=== PATIENT | male | born 1945 | race African-American/Black ===

== ENCOUNTER 2017-10-11 12:28 | Emergency (ER) | payer MEDICARE, OTHER ==
[~2017-10-11] VITALS: Ht 190.5 cm; Wt 106.6 kg
[~2017-10-11 12:28] MED LIST: ASPIR 8181 MG ORAL; ATENOLOL25 MG ORAL; DOXYCYCLINE MO100 MG ORAL; GLIPIZIDE5 MG ORAL; METFORMIN HCL1000 M1 ORAL; VENTOLIN HFA18 GM INH
[2017-10-11 12:35] VITALS: BP 148/78
[2017-10-11 13:12] LABS: APPEARANCE,URINE CLEAR; KETONES,URINE 1+ (NEGATIVE); LEUKOCYTE ESTERASE ,URINE 3+ (NEGATIVE); NITRITE,URINE NEGATIVE (NEGATIVE); PH,URINE 5 (4.5-8.0); PROTEIN,URINE 1+ (NEGATIVE); UROBILINOGEN,URINE 1 MG/DL (0.0-1.0)
[2017-10-11 13:21] LABS: BACTERIA,URINE FEW /HPF; MUCUS,URINE FEW /LPF (NONE/OCC); RBC,URINE 0-2 /HPF (0 - 0); SQUAMOUS EPITHELIAL CELL,UR OCCASIONAL /LPF (NONE/OCC)
[2017-10-11] MEDS ORDERED: CIPROFLOXACIN500 M2 ORAL (13:28)
[2017-10-11] MEDS ORDERED: ACETAMINOPHEN-1 EAC1 ORAL (13:28)
[2017-10-11 13:34] VITALS: BP 160/89
[2017-10-11 13:35] VITALS: BP 160/89
--- NOTE | 2017-10-11 23:03 | Emergency Room Report ---
History of Present Illness General Chief Complaint: Abdominal Pain Source: Patient (KRISHAN GTZ) Present Illness HPI The patient is a 72-year-old male presenting for the lower abdominal pain and increased urinary frequency for the past week. He states they had a urinary tract infection one year prior and this feels the same. Pain is an 8/10 dull ache and does not radiate. He denies any known provoking or relieving factors. He denies other symptoms including dysuria, hematuria, back pain, nausea, vomiting, fever, chills (KRISHAN GTZ) Allergies: Coded Allergies: No Known Allergies (Unverified , 05/29/16) Patient History Past Medical History: see triage record Pertinent Family History: none Reviewed Nursing Documentation: PMH: Agreed, PSxH: Agreed (KRISHAN GTZ) Nursing Documentation-PMH Hx Cardiac Problems: Yes - [place] 1998. 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 Hx Gastrointestinal Problems: No Hx Neurological Problems: No (KRISHAN GTZ) Review of Systems All Other Systems: negative except mentioned in HPI (KRISHAN GTZ) Physical Exam Vital Signs Date Time Temp Pulse Resp B/P (MAP) Pulse Ox O2 Delivery O2 Flow Rate FiO2 10/11/17 12:35 98.1 80 20 148/78 99 Room Air Sp02 EP Interpretation: reviewed, normal General Appearance: no apparent distress, alert, GCS 15, non-toxic Head: normocephalic, atraumatic Eyes: bilateral eye normal inspection, bilateral eye PERRL ENT: hearing grossly normal, normal pharynx, no angioedema, normal voice Gastrointestinal: normal bowel sounds, soft, non-distended, no guarding, no rebound, tenderness - suprapubic Musculoskeletal: back normal, gait/station normal, normal range of motion, non- tender Neurologic: alert, oriented x3, responsive, motor strength/tone normal, sensory intact, speech normal Psychiatric: judgement/insight normal, memory normal, mood/affect normal, no suicidal/homicidal ideation Skin: normal color, no rash, warm/dry, well hydrated (KRISHAN GTZ) Medical Decision Making PA Attestation Dr. Piedra is my supervising physician. Patient management was discussed with my supervising physician (KRISHAN GTZ) Medicare Attestation The history of Asaf Bass has been reviewed and management options for him have been examined and discussed by Néstor Piedra. I have personally examined and interviewed the patient. (NÉSTOR PIEDRA M.D.) Diagnostic Impression: Primary Impression: Urinary tract infection Qualified Codes: N30.01 - Acute cystitis with hematuria ER Course The patient is a 72-year-old male presenting for the lower abdominal pain and increased urinary frequency for the past week. Differential diagnosis considered but not limited to: UTI, pyelonephritis, diverticulitis, among others PE: Afebrile. NAD. Abdomen: Normal appearance. Non distended. No ecchymosis. Normal BS. TTP over suprapubic region only. No McBurney point tenderness. No guarding. No CVA tenderness Urinalysis is consistent with urinary tract infection The patient discharged home with a prescription for Ciprofloxacin based on previous microbio report and is given ER precautions. Laboratory Tests Test 10/11/17 12:50 Urine Color Yellow Urine Appearance Clear Urine pH 5 (4.5-8.0) Urine Specific [place] 1.025 (1.005-1.035) Urine Protein 1+ (NEGATIVE) H Urine Glucose (UA) Negative (NEGATIVE) Urine Ketones 1+ (NEGATIVE) H Urine Occult Blood Negative (NEGATIVE) Urine Nitrite Negative (NEGATIVE) Urine Bilirubin Negative (NEGATIVE) Urine Urobilinogen 1 MG/DL (0.0-1.0) H Urine Leukocyte Esterase 3+ (NEGATIVE) H Urine RBC 0-2 /HPF (0 - 0) H Urine WBC 10-15 /HPF (0 - 0) H Urine Squamous Epithelial Cells Occasional /LPF Urine Bacteria Few /HPF (NONE) Urine Mucus Few /LPF (NONE/OCC) H Lab Results Impression Consistent with UTI (KRISHAN GTZ.AMartinez) Last Vital Signs Date Time Temp Pulse Resp B/P (MAP) Pulse Ox O2 Delivery O2 Flow Rate FiO2 10/11/17 13:35 97.6 79 19 160/89 98 Room Air Status: improved (KRISHAN GTZ.AMartinez) Disposition: HOME, SELF-CARE Condition: Improved Scripts Ciprofloxacin Hcl* (CIPROFLOXACIN HCL*) 500 Mg Tablet 500 MG ORAL EVERY 12 HOURS, #20 TAB 0 Refills Prov: KRISHAN GTZ 10/11/17 Acetaminophen With Codeine (T#3) (TYLENOL #3 TAB*) Y Tab 1 TAB ORAL Q6HR Y for For Pain, #10 TAB Prov: KRISHAN GTZ 10/11/17 Referrals: [facility]ERR[facility] (PCP) Patient Instructions: Urinary Tract Infection, Hematuria, Adult Additional Instructions: I discussed my findings with the patient. All questions and concerns have been answered. Treatment and medication compliance have been addressed. I advised the patient that they need to follow up with primary doctor within 3 days. Return to ED if symptoms worsen, new symptoms arise, or if needed for any reason. Patient verbalized understanding of discharge instructions. KRISHAN GTZ Oct 11, 2017 23:03 NÉSTOR PIEDRA M.D. Oct 12, 2017 13:56
== END 2017-10-11 13:36 | disposition home or self-care (01) ==
LOC: EMR 12:56
DX: N39.0 Urinary tract infection, site not specified (principal); I10 Essential (primary) hypertension; E11.9 Type 2 diabetes mellitus without complications; J45.909 Unspecified asthma, uncomplicated
CPT/HCPCS: 81003; 87086; 87181; 99283

== ENCOUNTER → 2017-12-10 | Emergency (ER) | payer MEDICARE, OTHER ==
[~2017-12-10] VITALS: Ht 190.5 cm; Wt 102.1 kg
[~2017-12-10] MED LIST changes: +ACETAMINOPHEN-1 EAC1 ORAL; +CIPROFLOXACIN500 M2 ORAL; +MULTIVITAMINS1 EAC8 ORAL; +NITROFURANTOIN100 M2 ORAL
[2017-12-10 17:10] VITALS: BP 150/80
[2017-12-10 17:28] LABS: APPEARANCE,URINE CLOUDY; BILIRUBIN, URINE NEGATIVE (NEGATIVE); COLOR,URINE YELLOW; GLUCOSE, URINE (UA) NEGATIVE (NEGATIVE); KETONES,URINE NEGATIVE (NEGATIVE); LEUKOCYTE ESTERASE ,URINE 3+ (NEGATIVE); NITRITE,URINE NEGATIVE (NEGATIVE); PH,URINE 5 (4.5-8.0); PROTEIN,URINE 2+ (NEGATIVE); UROBILINOGEN,URINE 4 MG/DL (0.0-1.0)
--- NOTE | 2017-12-10 17:28 | Emergency Room Report ---
History of Present Illness General Chief Complaint: Male Urogenital Problems Source: Patient Present Illness HPI Patient presents with hematuria this morning. A little bit of bladder discomfort also at that time. Denies any fevers or chills. It seems to have cleared up somewhat. The patient has a history of prostate cancer (chart states colon cancer). He's post prostatectomy. He states he's been cured. This is the third episode that he has presented with hematuria. The last time he was treated with antibiotics and seemed to work well. He seems to associate energy drinks and caffeine with the hematuria. He smoked some THC earlier this morning. No nausea vomiting diarrhea. No rectal pain. No bleeding other sites or bruising. No rashes. No MAE. Diabetic. States not take meds today. Admitted for ? pyelonephritis. Treated for UTI 09/2017 - was sensitive E coli Allergies: Coded Allergies: No Known Allergies (Unverified , 05/29/16) Patient History Past Medical History: see triage record Past Surgical History: other - prostatectomy Social History: Reports: drug use, Denies: smoking Social History Narrative from home Reviewed Nursing Documentation: PMH: Agreed, PSxH: Agreed Nursing Documentation-PMH Hx Cardiac Problems: Yes - [place] 1998. 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 Hx Neurological Problems: No Review of Systems All Other Systems: negative except mentioned in HPI Physical Exam Vital Signs Date Time Temp Pulse Resp B/P (MAP) Pulse Ox O2 Delivery O2 Flow Rate FiO2 12/10/17 17:10 97.8 82 16 150/80 98 Room Air 97.9 Sp02 EP Interpretation: reviewed, normal General Appearance: well appearing, no apparent distress, GCS 15 Head: normocephalic Eyes: bilateral eye normal inspection, bilateral eye PERRL ENT: moist mucus membranes Neck: supple Respiratory: lungs clear, normal breath sounds Cardiovascular #1: regular rate, rhythm Cardiovascular #2: 2+ radial (R) Gastrointestinal: normal inspection, normal bowel sounds, non tender, non- distended Genitourinary: no CVA tenderness Musculoskeletal: back normal, gait/station normal, normal range of motion Neurologic: alert, oriented x3, grossly normal Psychiatric: mood/affect normal Skin: normal inspection, warm/dry Medical Decision Making Diagnostic Impression: Primary Impression: UTI (urinary tract infection) Qualified Codes: N30.00 - Acute cystitis without hematuria Additional Impression: Anemia Qualified Codes: D64.9 - Anemia, unspecified ER Course Patient post prostatectomy presents with hematuria. Differential includes a urinary tract infection, renal lesion, bladder lesion, recurrence of cancer amongst others. Evaluation of his labs and urinalysis. The patient declines pain at this time. Labs with slight anemia, normal WBC and pyuria. Treated with macrobid. Patient stable for outpatient observation and treatment. Laboratory Tests Test 12/10/17 17:05 12/10/17 17:25 Urine Color Yellow Urine Appearance Cloudy Urine pH 5 (4.5-8.0) Urine Specific [place] 1.020 (1.005-1.035) Urine Protein 2+ (NEGATIVE) H Urine Glucose (UA) Negative (NEGATIVE) Urine Ketones Negative (NEGATIVE) Urine Occult Blood 5+ (NEGATIVE) H Urine Nitrite Negative (NEGATIVE) Urine Bilirubin Negative (NEGATIVE) Urine Urobilinogen 4 MG/DL (0.0-1.0) H Urine Leukocyte Esterase 3+ (NEGATIVE) H Urine RBC 15-20 /HPF (0 - 0) H Urine WBC Tntc /HPF (0 - 0) H Urine Squamous Epithelial Cells Few /LPF (NONE/OCC) Urine Bacteria Few /HPF (NONE) White Blood Count 9.0 K/UL (4.8-10.8) Red Blood Count 4.16 M/UL (4.70-6.10) L Hemoglobin 11.5 G/DL (14.2-18.0) L Hematocrit 35.6 % (42.0-52.0) L Mean Corpuscular Volume 86 FL (80-99) Mean Corpuscular Hemoglobin 27.6 PG (27.0-31.0) Mean Corpuscular Hemoglobin Concent 32.2 G/DL (32.0-36.0) Red Cell Distribution Width 13.4 % (11.6-14.8) Platelet Count 330 K/UL (150-450) Mean Platelet Volume 6.3 FL (6.5-10.1) L Neutrophils (%) (Auto) 76.3 % (45.0-75.0) H Lymphocytes (%) (Auto) 15.2 % (20.0-45.0) L Monocytes (%) (Auto) 6.7 % (1.0-10.0) Eosinophils (%) (Auto) 0.3 % (0.0-3.0) Basophils (%) (Auto) 1.5 % (0.0-2.0) Prothrombin Time 10.7 SEC (9.30-11.50) Prothrombin Time INR 1.0 (0.9-1.1) PTT 29 SEC (23-33) Sodium Level 135 MMOL/L (136-145) L Potassium Level 4.6 MMOL/L (3.5-5.1) Chloride Level 100 MMOL/L (98-107) Carbon Dioxide Level 24 MMOL/L (21-32) Anion Gap 11 mmol/L (5-15) Blood Urea Nitrogen 17 mg/dL (7-18) Creatinine 1.3 MG/DL (0.55-1.30) Estimate Glomerular Filtration Rate mL/min (>60) Glucose Level 209 MG/DL (74-106) H Calcium Level 9.3 MG/DL (8.5-10.1) Total Bilirubin 0.5 MG/DL (0.2-1.0) Aspartate Amino Transferase (AST) 29 U/L (15-37) Alanine Aminotransferase (ALT) 39 U/L (12-78) Alkaline Phosphatase 65 U/L (46-116) Total Protein 8.6 G/DL (6.4-8.2) H Albumin 3.4 G/DL (3.4-5.0) Globulin 5.2 g/dL Albumin/Globulin Ratio 0.7 (1.0-2.7) L Lipase 139 U/L (73-393) Last Vital Signs Date Time Temp Pulse Resp B/P (MAP) Pulse Ox O2 Delivery O2 Flow Rate FiO2 12/10/17 17:10 97.8 82 16 150/80 98 Room Air 97.9 Status: improved Disposition: HOME, SELF-CARE Condition: Improved Scripts Multivitamin With Minerals (MULTIVITAMINS WITH MINERALS*) 1 Each Tablet 1 TAB ORAL DAILY, #30 TAB Prov: Kin Thomas M.D. 12/10/17 Nitrofurantoin Monohyd/M-Cryst* (MACROBID 100 MG*) 100 Mg Capsule 100 MG ORAL EVERY 12 HOURS, #14 CAP Prov: Kin Thomas M.D. 12/10/17 Kin Thomas M.D. Dec 10, 2017 17:28
[2017-12-10 17:45] LABS: BASOPHILS % (AUTO) 1.5 % (0.0-2.0); EOSINOPHILS % (AUTO) 0.3 % (0.0-3.0); HEMATOCRIT 35.6 % (42.0-52.0); HEMOGLOBIN 11.5 G/DL (14.2-18.0); LYMPHOCYTES % (AUTO) 15.2 % (20.0-45.0); MEAN CORPUSCULAR VOLUME 86 FL (80-99); MONOCYTES % (AUTO) 6.7 % (1.0-10.0); NEUTROPHILS % (AUTO) 76.3 % (45.0-75.0); PLATELET COUNT 330 K/UL (150-450); RED BLOOD COUNT 4.16 M/UL (4.70-6.10); RED CELL DISTRIBUTION WIDTH 13.4 % (11.6-14.8)
[2017-12-10 17:49] LABS: ANION GAP 11 mmol/L (5-15); BLOOD UREA NITROGEN 17 mg/dL (7-18); CALCIUM 9.3 MG/DL (8.5-10.1); CARBON DIOXIDE 24 MMOL/L (21-32); CHLORIDE 100 MMOL/L (98-107); CREATININE 1.3 MG/DL (0.55-1.30); POTASSIUM 4.6 MMOL/L (3.5-5.1); SODIUM 135 MMOL/L (136-145)
[2017-12-10 17:53] LABS: ALANINE AMINOTRANSFERASE 39 U/L (12-78); ALBUMIN 3.4 G/DL (3.4-5.0); ALBUMIN/GLOBULIN RATIO 0.7 (1.0-2.7); ALKALINE PHOSPHATASE 65 U/L (46-116); ASPARTATE AMINO TRANSFERASE 29 U/L (15-37); BILIRUBIN,TOTAL 0.5 MG/DL (0.2-1.0)
== END | disposition home or self-care (01) ==
LOC: EMR 17:41
DX: N39.0 Urinary tract infection, site not specified (principal); R31.9 Hematuria, unspecified; D64.9 Anemia, unspecified; I10 Essential (primary) hypertension; J45.909 Unspecified asthma, uncomplicated; E11.9 Type 2 diabetes mellitus without complications; I25.2 Old myocardial infarction
CPT/HCPCS: 36415; 80053; 81003; 83690; 85025; 85610; 85730; 87086; 87181; 99284

== ENCOUNTER 2018-08-28 14:33 | Emergency (ER) | payer MEDICARE, OTHER ==
[~2018-08-28] VITALS: Ht 190.5 cm; Wt 98.9 kg
[2018-08-28] MEDS ORDERED: UNOBMED (14:38)
--- NOTE | 2018-08-28 15:07 | Emergency Room Report ---
History of Present Illness General Chief Complaint: General Complaint Source: Patient, Medical Record Present Illness HPI 73-year-old male, hypertension diabetes, presenting with fever chills for the last 2 days. Patient states that yesterday he started with the chills, he did eat a old possibly rotten food, and he proceeded to have one episode of vomiting , today he had one episode of diarrhea. No abdominal pain. Says he has had some chills. No runny nose or cough. No shortness of breath or chest pain. No dysuria or hematuria Allergies: Coded Allergies: No Known Allergies (Unverified , 05/29/16) Patient History Past Medical History: see triage record Past Surgical History: none Pertinent Family History: none Reviewed Nursing Documentation: PMH: Agreed; PSxH: Agreed Nursing Documentation-PMH Past Medical History: No History, Except For Hx Cardiac Problems: Yes - [place] 1998. 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 Hx Neurological Problems: No Review of Systems All Other Systems: negative except mentioned in HPI Physical Exam Vital Signs Date Time Temp Pulse Resp B/P (MAP) Pulse Ox O2 Delivery O2 Flow Rate FiO2 08/28/18 14:36 99.7 118 18 119/68 100 Room Air Sp02 EP Interpretation: reviewed, normal General Appearance: normal inspection, well appearing, no apparent distress, alert, GCS 15, non-toxic Head: normocephalic, atraumatic Eyes: bilateral eye normal inspection, bilateral eye PERRL, bilateral eye EOMI ENT: normal ENT inspection, normal pharynx, normal voice, moist mucus membranes Neck: normal inspection, full range of motion, supple Respiratory: normal inspection, lungs clear, normal breath sounds, no respiratory distress, no retraction, no wheezing, speaking full sentences, chest symmetrical Cardiovascular #1: normal inspection, regular rate, rhythm, no edema, normal capillary refill Cardiovascular #2: 2+ radial (R), 2+ radial (L) Gastrointestinal: normal inspection, non tender, soft, non-distended, no guarding Genitourinary: no CVA tenderness Musculoskeletal: normal inspection, back normal, normal range of motion, non- tender Neurologic: normal inspection, alert, oriented x3, responsive, motor strength/ tone normal, sensory intact, normal gait, speech normal Psychiatric: normal inspection, judgement/insight normal, memory normal Skin: normal inspection, normal color, no rash, warm/dry, well hydrated, normal turgor Procedures Critical Care Time Critical Care Time 40 minutes of CC time 73-year-old male, sepsis, UTI PLAN: IV access, labs, lactate, troponin, Blood/Urine Cx, Abx, IVF Anticipate admission to Tele vs. YISEL CC time also includes review of labs, review of EMR, discussion with family and paperwork from SNF, d/w hospitalist CC could include dosing of pressors, additional Abx CC time does not include procedures Medical Decision Making Diagnostic Impression: Primary Impression: UTI (urinary tract infection) Additional Impression: Sepsis ER Course 73-year-old male, fever chills DDX: Viral syndrome, gastroenteritis, URI, pneumonia, UTI Plan: Obtain labs, ua, ucx, CXR, EKG Fluids and Zofran ER course: Patient noted to have a UTI He was given IV ceftriaxone He was also given fluids, he is feeling much better, he's been ambulatory to and from the bathroom Technically patient is still septic, heart rate did improve to 100 I told patient that he must stay in the hospital due to his UTI and sepsis, however patient does not want to stay in the hospital. He says that he feels much better and he would actually like to go home I told him the risks of leaving to go home, including increased morbidity and mortality, sepsis, bacteremia, ultimately He still would like to leave and he said that he can follow-up with his doctor in the morning Patient is clinically sober, is free from from distracting injury, and has intact judgement and capacity to decide to leave against medical advice. Patient came in for fever. I'm concerned for or sepsis. Patient verbalized understanding of my concern and my need to admit to the hospital, but patient states "I feel much better and I would like to go home ". I explained to patient the risks of leaving AMA and patient informed that if they leave, they could get worse, ould become become critically ill, possibly become disabled or . Patient verbalized back to me understanding of these risks but still wants to leave. Sepsis Re-examination Time: 4:45 VS: Temp 991 HR103 BP 130/90 RR 15 CVS: RRR Respiratory: Lungs clear bilaterally Peripheral pulses: 2+ radial Capillary refill: <2 seconds Skin exam: warm, dry, no rash, not mottled Disposition: Patient is to leave AMA Patient is instructed to follow up with their primary care doctor in 24 hours dx w keflex Strict return precautions discussed with patient such as fever, chills, worsening/severe pain, chest pain, SOB, nausea, vomiting, which may indicate severe illness. Patient verbalizes understanding and agrees with plan. Please note that this Emergency Department Report was dictated using [employer] estate technology software, occasionally this can lead to erroneous entry secondary to interpretation by the dictation equipment EKG Diagnostic Results EP Interpretation: Yes Rate: 108 Rhythm: NSR ST Segments: No acute changes ASA given to patient: No Chest X-ray CXR: Ordered: Yes 1 view Indication: fwever EP interpretation: Yes Interpretation: No consolidation, no effusion, no PTX, no acute cardiopulmonary disease Impression: No acute disease Electronically signed by Heather Mckeon MD Rhythm Strip EP Interpretation: Yes Rate:107 Rhythm: NSR, no PVCs, no ectopy Laboratory Tests Test 08/28/18 15:00 White Blood Count 12.1 K/UL (4.8-10.8) H Red Blood Count 4.10 M/UL (4.70-6.10) L Hemoglobin 8.9 G/DL (14.2-18.0) L Hematocrit 29.2 % (42.0-52.0) L Mean Corpuscular Volume 71 FL (80-99) L Mean Corpuscular Hemoglobin 21.7 PG (27.0-31.0) L Mean Corpuscular Hemoglobin Concent 30.4 G/DL (32.0-36.0) L Red Cell Distribution Width 15.2 % (11.6-14.8) H Platelet Count 338 K/UL (150-450) Mean Platelet Volume 6.1 FL (6.5-10.1) L Neutrophils (%) (Auto) % (45.0-75.0) Lymphocytes (%) (Auto) % (20.0-45.0) Monocytes (%) (Auto) % (1.0-10.0) Eosinophils (%) (Auto) % (0.0-3.0) Basophils (%) (Auto) % (0.0-2.0) Differential Total Cells Counted 100 Neutrophils % (Manual) 85 % (45-75) H Lymphocytes % (Manual) 7 % (20-45) L Monocytes % (Manual) 5 % (1-10) Eosinophils % (Manual) 0 % (0-3) Basophils % (Manual) 1 % (0-2) Band Neutrophils 2 % (0-8) Platelet Estimate Adequate Platelet Morphology Normal Hypochromasia 1+ Anisocytosis 1+ Urine Color Yellow Urine Appearance Clear Urine pH 7 (4.5-8.0) Urine Specific [place] 1.005 (1.005-1.035) Urine Protein 1+ (NEGATIVE) H Urine Glucose (UA) Negative (NEGATIVE) Urine Ketones 1+ (NEGATIVE) H Urine Blood 1+ (NEGATIVE) H Urine Nitrite Negative (NEGATIVE) Urine Bilirubin Negative (NEGATIVE) Urine Urobilinogen 8 MG/DL (0.0-1.0) H Urine Leukocyte Esterase 3+ (NEGATIVE) H Urine RBC 2-4 /HPF (0 - 0) H Urine WBC 10-15 /HPF (0 - 0) H Urine Squamous Epithelial Cells None /LPF (NONE/OCC) Urine Bacteria Moderate /HPF (NONE) H Sodium Level 133 MMOL/L (136-145) L Potassium Level 4.5 MMOL/L (3.5-5.1) Chloride Level 100 MMOL/L (98-107) Carbon Dioxide Level 19 MMOL/L (21-32) L Anion Gap 14 mmol/L (5-15) Blood Urea Nitrogen 17 mg/dL (7-18) Creatinine 1.3 MG/DL (0.55-1.30) Estimate Glomerular Filtration Rate mL/min (>60) Glucose Level 145 MG/DL (74-106) H Lactic Acid Level 3.30 mmol/L (0.4-2.0) H Calcium Level 9.1 MG/DL (8.5-10.1) Total Bilirubin 0.8 MG/DL (0.2-1.0) Aspartate Amino Transferase (AST) 67 U/L (15-37) H Alanine Aminotransferase (ALT) 57 U/L (12-78) Alkaline Phosphatase 57 U/L (46-116) Troponin I 0.003 ng/mL (0.000-0.056) Total Protein 8.8 G/DL (6.4-8.2) H Albumin 3.3 G/DL (3.4-5.0) L Globulin 5.5 g/dL Albumin/Globulin Ratio 0.6 (1.0-2.7) L Microbiology Date/Time Source Procedure Growth Status 08/28/18 15:00 Nasal Nares Influenza Types A,B Antigen (ERASMO) - Final Complete Last Vital Signs Date Time Temp Pulse Resp B/P (MAP) Pulse Ox O2 Delivery O2 Flow Rate FiO2 08/28/18 14:49 118 18 Room Air 08/28/18 14:36 99.7 119/68 100 Disposition: AGAINST MEDICAL ADVICE Condition: Stable Scripts Cephalexin* (KEFLEX*) 500 Mg Capsule 500 MG ORAL EVERY 6 HOURS, #28 CAP Prov: Heather Mckeon M.D. 08/28/18 Heather Mckeon M.D. Aug 28, 2018 15:07
[2018-08-28 15:16] VITALS: BP 141/63
[2018-08-28 15:29] LABS: APPEARANCE,URINE CLEAR; BILIRUBIN, URINE NEGATIVE (NEGATIVE); GLUCOSE, URINE (UA) NEGATIVE (NEGATIVE); HEMATOCRIT 29.2 % (42.0-52.0); HEMOGLOBIN 8.9 G/DL (14.2-18.0); MEAN CORPUSCULAR VOLUME 71 FL (80-99); NITRITE,URINE NEGATIVE (NEGATIVE); PLATELET COUNT 338 K/UL (150-450); RED CELL DISTRIBUTION WIDTH 15.2 % (11.6-14.8); WHITE BLOOD COUNT 12.1 K/UL (4.8-10.8)
[2018-08-28 15:34] LABS: KETONES,URINE 1+ (NEGATIVE); LEUKOCYTE ESTERASE ,URINE 3+ (NEGATIVE); PH,URINE 7 (4.5-8.0); PROTEIN,URINE 1+ (NEGATIVE); UROBILINOGEN,URINE 8 MG/DL (0.0-1.0)
[2018-08-28 15:36] LABS: ANION GAP 14 mmol/L (5-15); BLOOD UREA NITROGEN 17 mg/dL (7-18); CALCIUM 9.1 MG/DL (8.5-10.1); CARBON DIOXIDE 19 MMOL/L (21-32); CHLORIDE 100 MMOL/L (98-107); CREATININE 1.3 MG/DL (0.55-1.30); POTASSIUM 4.5 MMOL/L (3.5-5.1); SODIUM 133 MMOL/L (136-145)
--- NOTE | 2018-08-28 15:37 | Diagnostic Imaging Report ---
Indication: Chest pain Technique: One view of the chest Comparison: 08/11/2007 Findings: Lungs and pleural spaces are clear. The heart size is normal. The aorta is calcified. There is mild central pulmonary vascular prominence but no haseeb infiltrate or congestion. No significant change Impression: No acute process
[2018-08-28 15:41] LABS: ALANINE AMINOTRANSFERASE 57 U/L (12-78); ALBUMIN 3.3 G/DL (3.4-5.0); ALBUMIN/GLOBULIN RATIO 0.6 (1.0-2.7); ALKALINE PHOSPHATASE 57 U/L (46-116); ASPARTATE AMINO TRANSFERASE 67 U/L (15-37); BILIRUBIN,TOTAL 0.8 MG/DL (0.2-1.0)
[2018-08-28 15:42] LABS: COLOR,URINE YELLOW
[2018-08-28] MEDS ORDERED: cefTRIAXone 1 GM in NS 55 ML IVPB ONE (16:00)
[2018-08-28] MEDS ORDERED: cefTRIAXone 1 GM in D5W 55 ML IVPB ONE (16:15)
[2018-08-28] MEDS ORDERED: CEPHALEXIN500 MG ORAL (16:21)
[2018-08-28 17:14] VITALS: BP 135/80
[2018-08-28 17:19] VITALS: BP 135/80
--- NOTE | 2018-08-29 17:00 | Cardiology Report ---
APPROVED REPORT EKG Measurement Heart [id number] Sinus tachycardia Otherwise normal ECG
== END 2018-08-28 17:19 | disposition left against medical advice (07) ==
LOC: EMR 16:09
DX: N39.0 Urinary tract infection, site not specified (principal); A41.9 Sepsis, unspecified organism; Z53.21 Procedure and treatment not carried out due to patient leaving prior to being seen by health care provider; R50.9 Fever, unspecified; I10 Essential (primary) hypertension; E11.9 Type 2 diabetes mellitus without complications; I25.2 Old myocardial infarction
CPT/HCPCS: 36415; 71045; 80053; 81003; 83605; 84484; 85007; 85025; 86710; 87040; 87086; 87181; 93005; 96361; 96365; 96375; 99284; J0696; J2405

== ENCOUNTER 2018-10-17 01:01 | Emergency (ER) | payer MEDICARE, OTHER ==
[~2018-10-17] VITALS: Ht 190.5 cm; Wt 98.9 kg
[~2018-10-17 01:01] MED LIST changes: +CEPHALEXIN500 MG ORAL; +UNOBMED
[2018-10-17 01:19] VITALS: BP 133/68
--- NOTE | 2018-10-17 01:19 | NUR ---
ED Nurse Note: pt walked into ED c/o hematuria and chills but denies pain or burning sensation since this evening. pt aa&ox4, gcs=15, skin warm and dry, resp even and unlabored, -n/v/d, ambulates w/ cane w/steady gait, urine sample obtained urine color yellow, no blood found. pt +fever and tachy on phototypesetting equipment monitor. will continue to monitor.
[2018-10-17] MEDS ORDERED: cefTRIAXone 1 GM in NS 55 ML IVPB ONE (01:45)
--- NOTE | 2018-10-17 01:47 | Emergency Room Report ---
History of Present Illness General Chief Complaint: Male Urogenital Problems Source: Patient, Medical Record Present Illness HPI This is a 73-year-old male with multiple medical problem. He has recurrent hematuria. He has previous UTI in the past. He presents with chief complaint of hematuria. Onset today. He said it was heavy. Better now. This is a recurrent issue. Some 7 out of 10. No nausea no vomiting no fever or chills. Denies any other complaint. Never follow-up with a specialist. Allergies: Coded Allergies: No Known Allergies (Unverified , 10/17/18) Patient History Past Medical History: DM, HTN Past Surgical History: other Pertinent Family History: none Social History: Denies: smoking Immunizations: other Reviewed Nursing Documentation: PMH: Agreed; PSxH: Agreed Nursing Documentation-PMH Hx Cardiac Problems: Yes - [place] 1998. 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 Hx Neurological Problems: No Review of Systems Eye: Denies: eye pain, blurred vision ENT: Denies: ear pain, nose congestion, throat swelling Respiratory: Denies: cough, shortness of breath Cardiovascular: Denies: chest pain, palpitations Gastrointestinal: Denies: abdominal pain, diarrhea, nausea, vomiting Genitourinary: Reports: hematuria Musculoskeletal: Denies: back pain, joint pain Skin: Denies: rash Neurological: Denies: headache, numbness Endocrine: Denies: increased thirst, increased urine Hematologic/Lymphatic: Denies: easy bruising All Other Systems: negative except mentioned in HPI Physical Exam Vital Signs Date Time Temp Pulse Resp B/P (MAP) Pulse Ox O2 Delivery O2 Flow Rate FiO2 10/17/18 01:19 100.0 114 18 133/68 98 Room Air vitals with tachycardia and fever Sp02 EP Interpretation: reviewed, normal General Appearance: well appearing, no apparent distress, alert Head: normocephalic, atraumatic Eyes: bilateral eye PERRL, bilateral eye EOMI ENT: hearing grossly normal, normal pharynx Neck: full range of motion, supple, no meningismus Respiratory: chest non-tender, lungs clear, normal breath sounds Cardiovascular #1: regular rate, rhythm, no murmur Gastrointestinal: normal bowel sounds, non tender, no mass, no organomegaly, no bruit, non-distended Musculoskeletal: back normal, gait/station normal, normal range of motion Psychiatric: mood/affect normal Skin: warm/dry Medical Decision Making Diagnostic Impression: Primary Impression: UTI (urinary tract infection) Qualified Codes: N30.01 - Acute cystitis with hematuria Additional Impressions: Anemia Qualified Codes: D64.9 - Anemia, unspecified Hematuria Qualified Codes: R31.9 - Hematuria, unspecified ER Course Patient with hematuria. This is concerning for possible neoplastic process. Also could be secondary to infection. His hemoglobin is low. We'll need referred to see a urologist for cystoscopy. No evidence of obstruction. Discharge home. Lab Results Impression labs with anemia Last Vital Signs Date Time Temp Pulse Resp B/P (MAP) Pulse Ox O2 Delivery O2 Flow Rate FiO2 10/17/18 01:19 100.0 114 18 133/68 98 Room Air Status: improved Disposition: HOME, SELF-CARE Condition: Stable Scripts Levofloxacin* (LEVAQUIN*) 500 Mg Tablet 500 MG ORAL DAILY, #7 TAB Prov: Deven Cordero MD 10/17/18 Patient Instructions: Urinary Tract Infection Additional Instructions: Follow-up with your DrMartinez in 2 to 3 days for recheck. Return if symptom worsen. You will need a referral to see a urologist for cystoscopy to look for reasons for hematuria. Deven Cordero MD Oct 17, 2018 01:47
[2018-10-17 01:50] LABS: BILIRUBIN, URINE NEGATIVE (NEGATIVE); GLUCOSE, URINE (UA) NEGATIVE (NEGATIVE); KETONES,URINE NEGATIVE (NEGATIVE); LEUKOCYTE ESTERASE ,URINE 3+ (NEGATIVE); NITRITE,URINE NEGATIVE (NEGATIVE); PH,URINE 6 (4.5-8.0); PROTEIN,URINE 1+ (NEGATIVE); UROBILINOGEN,URINE NORMAL MG/DL (0.0-1.0)
[2018-10-17 02:02] LABS: APPEARANCE,URINE SLIGHTLY CLOUDY; COLOR,URINE YELLOW
[2018-10-17 02:08] LABS: HEMATOCRIT 26.9 % (42.0-52.0); HEMOGLOBIN 8.2 G/DL (14.2-18.0); MEAN CORPUSCULAR VOLUME 71 FL (80-99); PLATELET COUNT 360 K/UL (150-450); RED BLOOD COUNT 3.81 M/UL (4.70-6.10); WHITE BLOOD COUNT 11.5 K/UL (4.8-10.8)
[2018-10-17 02:16] LABS: ANION GAP 9 mmol/L (5-15); BLOOD UREA NITROGEN 15 mg/dL (7-18); CALCIUM 9.7 MG/DL (8.5-10.1); CARBON DIOXIDE 23 MMOL/L (21-32); CHLORIDE 101 MMOL/L (98-107); CREATININE 1.3 MG/DL (0.55-1.30); POTASSIUM 4.2 MMOL/L (3.5-5.1); SODIUM 133 MMOL/L (136-145)
[2018-10-17] MEDS ORDERED: Ketorolac 30mg Inj IV ONE (02:30)
[2018-10-17] MEDS ORDERED: LEVAQUIN500 MG ORAL (02:35)
[2018-10-17 03:00] VITALS: BP 148/61
[2018-10-17 03:30] VITALS: BP 148/61
== END 2018-10-17 04:09 | disposition home or self-care (01) ==
LOC: EMR 01:26
DX: N39.0 Urinary tract infection, site not specified (principal); R31.9 Hematuria, unspecified; D64.9 Anemia, unspecified; E11.9 Type 2 diabetes mellitus without complications; I10 Essential (primary) hypertension; J45.909 Unspecified asthma, uncomplicated; I25.2 Old myocardial infarction; Z85.89 Personal history of malignant neoplasm of other organs and systems
CPT/HCPCS: 36415; 80048; 81001; 85025; 87086; 96365; 96375; 99284; J0696; J1885

== ENCOUNTER 2019-01-09 11:07 | Emergency (ER) | payer MEDICARE, OTHER ==
[~2019-01-09] VITALS: Ht 190.5 cm; Wt 97.5 kg
[~2019-01-09 11:07] MED LIST changes: +LEVAQUIN500 MG ORAL
--- NOTE | 2019-01-09 11:33 | Emergency Room Report ---
History of Present Illness General Chief Complaint: Gastrointestinal Illness Source: Patient Present Illness HPI 73-year-old male with history of hypertension, diabetes, [place], prostate cancer in remission status post prostatectomy, colostomy and subsequent reversal p/w n/v 2x this am. He reports mild diffuse abdominal discomfort, but reports not severe, does report urinary frequency, no retention, no fevers, no chest pain or shortness of breath, reports a normal bowel movement this morning as well. Allergies: Coded Allergies: No Known Allergies (Unverified , 10/17/18) Patient History Past Medical History: see triage record Reviewed Nursing Documentation: PMH: Agreed; PSxH: Agreed Nursing Documentation-PMH Past Medical History: No History, Except For Hx Cardiac Problems: Yes - [place] 1998. Hx Hypertension: Yes Hx Asthma: Yes Hx Diabetes: Yes Hx Cancer: Yes - "abdomen" Hx Neurological Problems: No Review of Systems All Other Systems: negative except mentioned in HPI Physical Exam Vital Signs Date Time Temp Pulse Resp B/P (MAP) Pulse Ox O2 Delivery O2 Flow Rate FiO2 01/09/19 11:17 99.3 110 20 124/67 97 Room Air Sp02 EP Interpretation: reviewed, normal General Appearance: no apparent distress, alert, non-toxic Head: normocephalic Eyes: bilateral eye normal inspection, bilateral eye PERRL, bilateral eye EOMI , bilateral eye other - Strabismus ENT: normal ENT inspection, hearing grossly normal, normal pharynx, no angioedema, normal voice, moist mucus membranes Neck: normal inspection, full range of motion, supple, supple/symm/no masses Respiratory: chest non-tender, lungs clear, normal breath sounds, chest symmetrical, palpation of chest normal Cardiovascular #1: normal peripheral pulses, regular rate, rhythm Cardiovascular #2: 2+ radial (R), 2+ radial (L) Gastrointestinal: normal inspection, non tender, soft, no mass, no guarding, no rebound Rectal: deferred Genitourinary: normal inspection, no CVA tenderness Musculoskeletal: back normal, gait/station normal, normal range of motion, non- tender, no calf tenderness Neurologic: alert, responsive, 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, motor strength/tone normal, sensory intact, speech normal Psychiatric: judgement/insight normal, memory normal, mood/affect normal, no suicidal/homicidal ideation Skin: normal color, no rash, warm/dry, normal turgor Lymphatic: no adenopathy Medical Decision Making Diagnostic Impression: Primary Impression: Urinary tract infection ER Course Patient was found to have a hemoglobin 8, which seems to be his baseline in the last few times was checked, otherwise is also found to have hematuria and UTI with bilateral kidney stones, but no evidence of ureterolithiasis, patient does not appear septic, is well-appearing, he denied urinary retention symptoms, CT scan did show evidence of BPH and possible cystitis, I suspect possible prostatitis all given a prescription for Cipro 500 twice a day for 28 days, and have him follow-up with his urologist, he feels well has soft, nontender abdomen , will be discharged.he is tolerating by mouth here, and is not having persistent vomiting. EKG Diagnostic Results EKG Time: 11:34 EP Interpretation: no stemi Rate: normal Rhythm: NSR ST Segments: no acute changes Rhythm Strip Diag. Results Rhythm Strip Time: 11:40 EP Interpretation: yes Rate: 105 Rhythm: NSR, no PVC's, no ectopy Last Vital Signs Date Time Temp Pulse Resp B/P (MAP) Pulse Ox O2 Delivery O2 Flow Rate FiO2 01/09/19 11:17 99.3 110 20 124/67 97 Room Air Disposition: HOME, SELF-CARE Condition: Stable DEZ ANDERSON M.D Jan 09, 2019 11:33
[2019-01-09 11:41] VITALS: BP 124/67
[2019-01-09 11:51] LABS: MEAN CORPUSCULAR VOLUME 67 FL (80-99); PLATELET COUNT 355 K/UL (150-450); RED BLOOD COUNT 4.04 M/UL (4.70-6.10); RED CELL DISTRIBUTION WIDTH 16.8 % (11.6-14.8); WHITE BLOOD COUNT 13.2 K/UL (4.8-10.8)
[2019-01-09 12:06] LABS: ANION GAP 16 mmol/L (5-15); BLOOD UREA NITROGEN 15 mg/dL (7-18); CALCIUM 9.1 MG/DL (8.5-10.1); CARBON DIOXIDE 21 MMOL/L (21-32); CHLORIDE 98 MMOL/L (98-107); CREATININE 1.2 MG/DL (0.55-1.30); POTASSIUM 4.5 MMOL/L (3.5-5.1); SODIUM 135 MMOL/L (136-145)
[2019-01-09 12:16] LABS: ALANINE AMINOTRANSFERASE 41 U/L (12-78); ALBUMIN 3.3 G/DL (3.4-5.0); ALBUMIN/GLOBULIN RATIO 0.7 (1.0-2.7); ALKALINE PHOSPHATASE 57 U/L (46-116); ASPARTATE AMINO TRANSFERASE 42 U/L (15-37); BILIRUBIN,TOTAL 1.2 MG/DL (0.2-1.0)
[2019-01-09 12:17] LABS: BILIRUBIN,DIRECT 0.3 MG/DL (0.0-0.3)
--- NOTE | 2019-01-09 12:47 | Diagnostic Imaging Report ---
Indication: Abdominal pain Technique: Continuous helical transaxial imaging of the abdomen and pelvis was obtained from the lung bases to the pubic symphysis. No intravenous contrast was administered. Coronal 2-D reformats were also obtained. Automatic Exposure Control was utilized. Total Dose length Product (DLP): 1053.[address] Dose Index Volume (CTDIvol): 17.93 mGy Comparison: none Findings: Mild posterior basilar paraseptal bleb formation noted on the right and minimal reticular densities likely mild atelectasis or scarring. There are bilateral renal punctate calcifications likely nonobstructive stones. There is no hydronephrosis. There are multiple cysts suspected within both kidneys are obviously not the well the imaged on noncontrast studies. There is a fat-containing supraumbilical hernia at the midline. There is also a right para midline fat-containing hernia. There is thickening of the wall the urinary bladder. As is probably associated with the prostate hypertrophy as the prostate gland measures about 5.3 x 5.9 x 6.5 cm. Aortoiliac calcifications are present. The appendix is normal. There is narrowing of intervertebral discs and accompanying endplate osteophyte formation. Hypertrophied facet joints also demonstrated.. There is no free fluid. Gallbladder is not seen. There is a small left inguinal hernia containing fat. IMPRESSION: Bilateral nonobstructive nephrolithiasis. Multiple bilateral renal cysts. Ventral hernias containing fat as described above all above the umbilicus. Prostate hypertrophy. Thickening of the urinary bladder wall likely associated with this. Spondylosis Small left inguinal hernia containing fat. Atherosclerotic vascular disease. Status post cholecystectomy. The CT scanner at [facility] is accredited by the [employer] and the scans are performed using dose optimization techniques as appropriate to a performed exam including Automatic Exposure control.
[2019-01-09 13:46] LABS: APPEARANCE,URINE SLIGHTLY CLOUDY; BILIRUBIN, URINE NEGATIVE (NEGATIVE); GLUCOSE, URINE (UA) NEGATIVE (NEGATIVE); KETONES,URINE 2+ (NEGATIVE); LEUKOCYTE ESTERASE ,URINE 3+ (NEGATIVE); NITRITE,URINE NEGATIVE (NEGATIVE); PH,URINE 6.5 (4.5-8.0); PROTEIN,URINE NEGATIVE (NEGATIVE); UROBILINOGEN,URINE 1 MG/DL (0.0-1.0)
[2019-01-09 13:49] LABS: COLOR,URINE YELLOW
[2019-01-09] MEDS ORDERED: ZOFRAN4 M1 ORAL (14:05)
[2019-01-09] MEDS ORDERED: CIPROFLOXACIN500 M2 ORAL (14:05)
[2019-01-09 14:32] VITALS: BP_SYST 124; BP_SYST 128; BP_DIAS 65; BP_DIAS 67
== END 2019-01-09 14:35 | disposition home or self-care (01) ==
LOC: EMR 12:20
DX: N39.0 Urinary tract infection, site not specified (principal); E11.9 Type 2 diabetes mellitus without complications; I10 Essential (primary) hypertension; Z85.46 Personal history of malignant neoplasm of prostate; N20.0 Calculus of kidney; N28.1 Cyst of kidney, acquired; K43.9 Ventral hernia without obstruction or gangrene; K40.90 Unilateral inguinal hernia, without obstruction or gangrene, not specified as recurrent; Z90.49 Acquired absence of other specified parts of digestive tract
CPT/HCPCS: 36415; 74176; 80053; 81003; 82248; 83690; 84484; 85007; 85025; 87086; 93005; 96361; 96374; 99284; J2405